=== PATIENT | female | born 1960 | race Caucasian/White ===

== ENCOUNTER 2016-09-28 23:07 | Emergency (ER) | payer OTHER ==
[2016-09-28 23:23] VITALS: BP 149/102; PULSE 87; RESP 18; TEMP 98.4; O2SAT 95
[2016-09-28] MEDS ORDERED: OXYCODONE/APAP 5/325 TAB PO ONE (23:41)
--- NOTE | 2016-09-28 23:46 | EDPHY ---
H & P Time Seen by Provider: 09/28/16 23:24 HPI/ROS: CHIEF COMPLAINT: "I was attacked by my cat" HISTORY OF PRESENT ILLNESS: 56-year-old female with up-to-date tetanus states that when she returned home her vaccinated, primarily indoor cat, attacked her, biting and scratching primarily her left lower extremity as well as a few other injuries to right lower extremity and right elbow. This feline is up-to-date with vaccinations including rabies vaccination has exhibited no signs of recent illness or injury. PHYSICAL EXAM (Prior to examination, patient consented to physical exam, hands were washed and my usual and customary physical exam procedures followed) 1) GENERAL: Well-developed, well-nourished, alert and oriented. Appears to be in no acute distress. 2) HEAD: Normocephalic 3) HEENT: sclera anicteric 4) LUNGS: Breathing comfortably. 5) MUSCULOSKELETAL: right upper extremity: Scratch or bite on the right dorsal elbow. Full pain-free range of motion right elbow. Right lower extremity: Multiple discrete scratches and puncture wounds. Left lower extremity: This multiple discrete scratches and puncture wounds and lacerations , more so than the right lower extremity. Bilateral lower extremities have DP PT pulses present and brisk. Soft compartments bilaterally. No signs of infection bilaterally Smoking Status: Never smoked Constitutional: Initial Vital Signs Temperature (C) 36.9 C 09/28/16 23:19 Heart Rate 87 09/28/16 23:19 Respiratory Rate 18 09/28/16 23:19 Blood Pressure 149/102 H 09/28/16 23:19 O2 Sat (%) 95 09/28/16 23:19 O2 Delivery Mode Room Air Allergies/Adverse Reactions: ondansetron HCl [From Zofran (as hydrochloride)] Allergy (Verified 09/28/16 23: 23) Home Medications: Medication Instructions Recorded Amoxicillin/Clavulanate Pot 875 mg PO BID #14 tab 09/28/16 [Augmentin 875 mg tab] Nortriptyline HCl 09/28/16 Zoloft 25mg (*) 09/28/16 MDM/Departure - MDM ED Course/Re-evaluation: The patient's wounds have been cleansed and will be allowed to heal via secondary intention. She has multiple scratches and bites from her CT. She inquired about rabies. I discussed with her that because her feline is primarily an indoor cat and is up-to-date with her immunizations, according to the patient, I think that acute rabies is less than likely in her feline . However, I did recommend she contact animal control for both her safety and possible evaluation and quarantine of her feline. - Depart Disposition: Home, Routine, Self-Care Clinical Impression: Cat bite of left lower leg Qualifiers: Encounter type: initial encounter Qualified Code(s): S81.852A - Open bite, left lower leg, initial encounter; W55.01XA - Bitten by cat, initial encounter Cat scratch of left lower leg Qualifiers: Encounter type: initial encounter Qualified Code(s): S80.812A - Abrasion, left lower leg, initial encounter; W55.03XA - Scratched by cat, initial encounter Condition: Good Instructions: Animal Bite (ED) Additional Instructions: Return to the ER if you develop redness, swelling, discharge, warmth to the wound, red streaks going up your arm or leg, or any other symptoms that concern you. Prescriptions: Amoxicillin/Clavulanate Pot [Augmentin 875 mg tab] 875 mg PO BID #14 tab Referrals: Coleman Alfaro MD [Primary Care Provider] - 1-2 days without fail
[2016-09-28] MEDS ORDERED: AMOXICILLIN/CLAVULANATE POT 875/125 MG TAB PO ONE (23:51)
== END 2016-09-29 00:30 | disposition home or self-care (01) ==
DX: S81.852A Open bite, left lower leg, initial encounter (principal); W55.01XA Bitten by cat, initial encounter; Y92.009 Unspecified place in unspecified non-institutional (private) residence as the place of occurrence of the external cause; Y99.8 Other external cause status; Y93.89 Activity, other specified

== ENCOUNTER → 2017-08-06 | Outpatient (CLI) | payer OTHER | LOC: FIMAGING 10:23 | PROVIDERS: ATTEND Internal Medicine Hematology & Oncology | DX: Z13.820 Encounter for screening for osteoporosis (principal); M85.89 Other specified disorders of bone density and structure, multiple sites; Z85.3 Personal history of malignant neoplasm of breast ==